=== PATIENT | male | born 1975 | race African-American/Black ===

== ENCOUNTER 2020-05-03 15:21 | Emergency (ER) | payer OTHER, SELFPAY ==
[2020-05-03 15:27] VITALS: BP 149/90; PULSE 88; RESP 16; TEMP 36.7; O2SAT 100
--- NOTE | 2020-05-03 15:33 | ED.ALLEREA ---
HPI - Allergic Reaction General Chief complaint: Skin/Abscess/Foreign Body Stated complaint: pos allergic reaction Time Seen by Provider: 05/03/20 15:33 Source: patient and RN notes reviewed Mode of arrival: ambulatory Limitations: no limitations History of Present Illness HPI narrative: 44-year-old male presents with concern for possible allergic reaction. Reports he has had several day history of a rash under taking an anti-inflammatory medicine he never taken before. Reports he last took the medicine 12 hours ago. Reports he took approximately 5 doses of the medicine. He denies any shortness of breath, wheezing, swollen lips, swollen tongue, nausea, vomiting, diarrhea, fever. Reports taking Benadryl that temporarily relieve the itching. Reports the rash is on his arms and legs. MD complaint: other (Rash) Related Data Allergies Allergy/AdvReac Type Severity Reaction Status Date / Time nabumetone Allergy Rash Verified 05/03/20 15:28 Review of Systems Review of Systems: Narrative: CONSTITUTIONAL: Denies malaise, chills, sweats, or fever. EYES: Denies visual changes, redness, or discharge. ENT: Denies swollen lips, swollen tongue CARDIOVASCULAR: Denies chest pain, palpitations, or edema. RESPIRATORY: Denies cough or dyspnea. GASTROINTESTINAL: Denies abdominal pain, nausea, vomiting, diarrhea SKIN: Reports itchy rash on bilateral arms and legs MUSCULOSKELETAL: Denies myalgia. All systems reviewed & are unremarkable except as noted in HPI and below PMFSH Comments At time of signature, agree with nursing past medical, surgical, social and family history. There is no relevant family history pertinent to the presenting complaint Exam Narrative: Exam Narrative: GENERAL: Well-appearing, well-nourished, and in no acute distress. HEAD: Normocephalic, atraumatic. EYES: PERRLA, conjunctivae clear ENT: Nares clear. Mucous membranes moist. Oropharynx without edema, erythema or lesions. NECK: Supple. CHEST: No respiratory distress. Clear to auscultation. No bony deformities, no asymmetry. Speaks in full sentences. HEART: Regular rate and rhythm. No murmur heard. SKIN: Warm, dry fine erythematous rash noted to bilateral arms NEURO: Alert and oriented x3. PSYCH: Normal mood and affect Course Course Emergency Course: Patient is aware of diagnosis, understands and agrees to treatment plan. Anticipatory guidance given. Patient agrees to follow-up as directed and is aware of reasons to seek care at the emergency department. Portions of this record may have been created with voice recognition software Vital Signs Vital signs: Vital Signs Temperature 98.0 F 05/03/20 15: Pulse Rate 88 05/03/20 15:27 Respiratory Rate 16 05/03/20 15:27 Blood Pressure 149/90 H 05/03/20 15:27 Pulse Oximetry 100 05/03/20 15:27 Temperature 98.0 F 05/03/20 15:27 Pulse Rate 88 05/03/20 15:27 Respiratory Rate 16 05/03/20 15:27 Blood Pressure 149/90 H 05/03/20 15:27 Pulse Oximetry 100 05/03/20 15:27 Reviewed. MDM - Allergic Reaction MDM Narrative Medical decision making narrative: Does not appear at this time to be erythema multiforme, bullous, SJS, TEN; no evidence at this time to suggest RMSF, endocarditis or Lyme disease; patient looks well, nontoxic and is tolerating oral intake; no neurologic signs or symptoms; no headache, photophobia or neck pain; afebrile; appropriate for initial outpatient treatment; discussed the importance of follow-up, patient agrees; question, viral exanthema, contact dermatitis, allergic dermatitis, eczema, urticaria. No soft palate or uvula edema, no tongue, lip edema or other mucosal involvement, no respiratory compromise, no stridor, no wheezing, no wheezing, no history of syncope, no hypotension, no nausea, vomiting, or diarrhea. Instructed patient to go to nearest ER immediately for any worsening symptoms including but not limited to: fever, spreading rash, pain, sore throat, headache,
== END 2020-05-03 15:47 | disposition home or self-care (01) ==
PROVIDERS: Emergency Provider Nurse Practitioner; PCP Student in an Organized Health Care Education/Training Program
DX: L30.9 Dermatitis, unspecified (principal)
CPT/HCPCS: 99213; G0463

== ENCOUNTER 2021-02-20 09:01 | Outpatient (CLI) | payer OTHER, SELFPAY ==
--- NOTE | ~2021-02-20 | US_ITS ---
US abdomen complete DATE: 02/20/2021 09:40 INDICATION: Leukopenia TECHNIQUE: Real-time imaging and Doppler analysis of the abdomen COMPARISON: 05/04/2013 CT abdomen FINDINGS: No hepatic space-occupying mass lesion. Normal hepatopedal portal venous flow direction. No gallstones or gallbladder wall thickening or abnormal pericholecystic fluid collection. The common b ile duct measures 1.7 mm, normal. The pancreas is largely obscured by bowel gas. Normal splenic size. No renal mass lesion or hydronephrosis. IMPRESSION: The pancreas is largely obscured; otherwise unremarkable examination Reviewed, dictated and finalized at [facility]. Reviewed, dictated and finalized at [facility]. IMPRESSION: The pancreas is largely obscured; otherwise unremarkable examinatio n
== END 2021-02-20 09:02 | disposition home or self-care (01) ==
PROVIDERS: PCP Student in an Organized Health Care Education/Training Program; Visit Provider Internal Medicine Hematology & Oncology
DX: D72.819 Decreased white blood cell count, unspecified (principal)
CPT/HCPCS: 76700

== ENCOUNTER 2024-03-29 11:24 | Outpatient (CLI) | payer BC, SELFPAY ==
[2024-03-29 11:45] LABS: Basophils Absolute Auto 0.1 K/mm3 (0.0-0.1); Basophils Percent Auto 2.1 % (0.2-1.2); Eosinophils Absolute Auto 0.3 K/mm3 (0-0.3); Eosinophils Percent Auto 10.3 % (0-4.4); Hematocrit 46.4 % (42.0-52.0); Hemoglobin 15.4 g/dL (14.0-18.0); Lymphocytes Absolute Auto 0.38 K/mm3 (0.9-3.2); Lymphocytes Percent Auto 15.7 % (18.3-44.2); Mean Corpuscular HGB Conc 33.2 g/dl (32-36); Mean Corpuscular Hemoglobin 28.8 pg (26-34); Mean Corpuscular Volume 86.9 fl (80-100); Mean Platelet Volume 9.2 fl (7.4-10.4); Monocytes Absolute Auto 0.3 K/mm3 (0.1-0.6); Monocytes Percent Auto 10.7 % (2.6-8.5); Neutrophils Absolute Auto 1.5 K/mm3 (1.3-6.7); Neutrophils Percent Auto 61.2 % (45.5-73.1); Platelet Count Result 238 k/mm3 (150-375); Red Blood Count 5.34 M/mm3 (4.6-6.20); Red Cell Distribution Width 12.5 % (11.5-14.5); White Blood Count 2.4 K/mm3 (4.5-10.0)
[2024-03-29 13:08] LABS: Iron 115 ug/dL (49-181)
[2024-03-29 13:11] LABS: Alanine Aminotransferase 30 U/L (6-50); Albumin Level 4.7 g/dL (3.5-5.1); Alkaline Phosphatase 63 U/L (38-126); Anion Gap 6 mmol/L (4-12); Aspartate Amino Transferase 41 U/L (17-59); Bilirubin,Total 0.6 mg/dL (0.2-1.3); Blood Urea Nitrogen 19 mg/dL (9-20); Calcium 9.4 mg/dL (8.4-10.2); Carbon Dioxide 30 mmol/L (22-30); Chloride 101 mmol/L (98-107); Estimated Glomerular Filt Rate > 60; Glucose 88 mg/dL (65-110); Potassium 4.6 mmol/L (3.4-5.0); Sodium 137 mmol/L (137-145)
[2024-03-29 13:22] LABS: Percent Iron Saturation 41 % (20-50)
[2024-03-29 14:24] LABS: Folic Acid > 20.0 ng/mL (2.76->20)
[2024-04-08 11:58] LABS: Methylmalonic Acid 123 nmol/L (55-335)
[2024-04-11 13:09] LABS: Soluble Transferrin Receptor 1.39 mg/L (0.76-1.76)
== END 2024-03-29 11:25 | disposition home or self-care (01) ==
LOC: ANHLAB 11:27
PROVIDERS: PCP Student in an Organized Health Care Education/Training Program; Visit Provider Internal Medicine Hematology & Oncology
DX: D72.819 Decreased white blood cell count, unspecified (principal); D50.9 Iron deficiency anemia, unspecified
CPT/HCPCS: 36415; 80053; 82607; 82728; 82746; 83540; 83550; 83921; 84238; 85025; 88184

== ENCOUNTER 2025-03-07 07:54 | Outpatient (CLI) | payer BC, SELFPAY ==
--- NOTE | ~2025-03-07 | US_ITS ---
US retroperitoneal comp 03/07/2025 08:18 Procedure: Realtime transabdominal ultrasound of the kidneys and bladder. Indication: Elevated serum creatinine Comparison: No prior studies for comparison. Findings: Renal echotexture is normal bilaterally without hydronephrosis, contour deforming mass or renal calculus. The right kidney measures 8.7 cm and left kidney measures 10.6 cm. Bladder within normal limits. Impression: 1: Unremarkable renal ultrasound. No stones, masses or hydronephrosis. Reviewed, dictated and finalized at [facility]. Impression: 1: Unremarkable renal ultrasound. No stones, masses or hydronephrosis.
== END 2025-03-07 07:55 | disposition home or self-care (01) ==
PROVIDERS: PCP Student in an Organized Health Care Education/Training Program; Visit Provider Student in an Organized Health Care Education/Training Program
DX: R79.89 Other specified abnormal findings of blood chemistry (principal)
CPT/HCPCS: 76770